=== PATIENT | female | born 1985 | race Caucasian/White ===

== ENCOUNTER 2016-11-17 15:27 | Emergency (ER) | payer OTHER ==
[~2016-11-17] VITALS: Ht 162.6 cm; Wt 114.9 kg
[2016-11-17 16:15] LABS: BASOPHIL % 0.4 % (0-2); PLATELET COUNT 379 x10^3mcL (130-400); RED CELL DISTRIBUTION WIDTH 13.9 % (11.5-14.5)
[2016-11-17 16:21] LABS: CALCIUM 9.2 mg/dL (8.5-10.1); CARBON DIOXIDE 29.8 mmol/L (21-32); CHLORIDE SERUM 100 mmol/L (98-107); CREATININE SERUM 0.8 mg/dL (0.6-1.0); GFR1 > 60 mL/min; GLUCOSE SERUM 219 mg/dL (74-106); POTASSIUM SERUM 4.3 mmol/L (3.5-5.1); SODIUM SERUM 137 mmol/L (136-145)
[2016-11-17 16:37] LABS: ALKALINE PHOSPHATASE 104 U/L (46-116); ALT/SGPT 59 U/L (14-59); AST/SGOT 31 U/L (15-37); LIPASE 91 IU/L (73-393)
[2016-11-17 16:41] LABS: TOTAL PROTEIN, SERUM 8.7 g/dL (6.4-8.2)
[2016-11-17 17:45] VITALS: BP 124/82
== END 2016-11-17 17:45 | disposition home or self-care (01) ==
LOC: ED 15:27
PROVIDERS: Emergency Medicine
DX: K80.20 Calculus of gallbladder without cholecystitis without obstruction (principal); I10 Essential (primary) hypertension; Z87.19 Personal history of other diseases of the digestive system
CPT/HCPCS: 36415; J3010; Q0162

== ENCOUNTER 2017-04-08 00:12 | Emergency (ER) | payer OTHER ==
[~2017-04-08] VITALS: Ht 162.6 cm; Wt 114.3 kg
[2017-04-08 00:26] VITALS: Ht 162.6 cm; Wt 114.3 kg
[2017-04-08 02:32] VITALS: BP 144/95
== END 2017-04-08 02:58 | disposition home or self-care (01) ==
LOC: ED 00:12
DX: M26.621 Arthralgia of right temporomandibular joint (principal); R51 Headache; I10 Essential (primary) hypertension; E03.9 Hypothyroidism, unspecified
CPT/HCPCS: J1885

== ENCOUNTER 2017-04-11 05:46 | Emergency (ER) | payer OTHER ==
[~2017-04-11] VITALS: Ht 162.6 cm; Wt 115.2 kg
[2017-04-11 05:52] VITALS: Ht 162.6 cm; Wt 115.2 kg
[2017-04-11 08:17] VITALS: BP 134/84
== END 2017-04-11 08:17 | disposition home or self-care (01) ==
LOC: ED 05:46
DX: G50.0 Trigeminal neuralgia (principal); I10 Essential (primary) hypertension; E11.9 Type 2 diabetes mellitus without complications; E03.9 Hypothyroidism, unspecified
CPT/HCPCS: J0780; J1885

== ENCOUNTER 2017-04-26 00:25 | Emergency (ER) | payer OTHER ==
[~2017-04-26] VITALS: Ht 162.6 cm; Wt 115.2 kg
[2017-04-26 00:38] VITALS: Ht 162.6 cm; Wt 115.2 kg
[2017-04-26 04:46] VITALS: BP 117/62
== END 2017-04-26 04:46 | disposition home or self-care (01) ==
LOC: ED 00:25
DX: R51 Headache (principal); E11.9 Type 2 diabetes mellitus without complications; E03.9 Hypothyroidism, unspecified
CPT/HCPCS: J1100; J3490

== ENCOUNTER 2017-11-27 20:04 | Emergency (ER) | payer OTHER ==
[~2017-11-27] VITALS: Ht 162.6 cm; Wt 49.5 kg
[2017-11-27 20:06] VITALS: BP 137/54
== END 2017-11-27 23:33 | disposition left against medical advice (07) ==
LOC: ED 20:04
DX: Z53.21 Procedure and treatment not carried out due to patient leaving prior to being seen by health care provider (principal)